=== PATIENT | female | born 1975 | race African-American/Black ===

== ENCOUNTER 2019-10-31 15:42 | Emergency (ER) | payer OTHER ==
[2019-10-31] MEDS ORDERED: IBUPROFEN 600 MG TABLET (FP) PO ONE (16:01)
--- NOTE | 2019-10-31 16:01 | PDOC ---
History of Present Illness - General Chief Complaint: Chest Pain Stated Complaint: CHEST PAIN Time Seen by Provider: 10/31/19 15:46 History Source: Patient Exam Limitations: No Limitations - History of Present Illness Initial Comments: Karen watson a 44 yo F who denies having any pmh who presents to the [facility] with 3 hours of chest discomfort which is reproducible when she pushes on the right side of her chest. She has not taken any medications for this chest pain. States the pain is sharp in nature and does not radiate. Pain is not worsened with physical activity. Denies nausea, vomiting, diaphoresis. The patient denies recent travel/surgeries/immobility, lower extremity edema, calf pain or tenderness, tobacco use, hormone use, personal or family history of thrombosis. LMP: October 01 PCP: Dr. Lion Licona PSH: 2 C-sections, benign tumor removal from right neck, tummy tuck Social Hx: Denies smoking, drinking, or other substance abuse Allergies: Seasonal Past History - Medical History Allergies/Adverse Reactions: Allergies Allergy/AdvReac Type Severity Reaction Status Date / Time No Known Allergies Allergy Unverified 10/31/19 15:44 Home Medications: Ambulatory Orders NK [No Known Home Medication] 10/31/19 COPD: No Other medical history: DENIES - Psycho-Social/Smoking History Smoking History: Never smoked Information on smoking cessation initiated: No - Substance Abuse Hx (Audit-C & DAST Scrn) How often the patient has a drink containing alcohol: Never Score: In Men: 4 or > Positive; In Women: 3 or > Positive: 0 Screen Result (Pos requires Nsg. Audit-10AR): Negative In the last yr the pt used illegal drug/Rx for NonMed reason: No Score: Yes response is considered Positive: 0 Screen Result (Positive result requires Nsg. DAST-10): Negative Review of Systems - Review of Systems Able to Perform ROS?: Yes Comments:: CONSTITUTIONAL: Absent: fever, no chills, no fatigue EYES: Absent: visual changes ENT: Absent: ear pain, no sore throat CARDIOVASCULAR: Present: Chest pain Absent: no palpitations RESPIRATORY: Absent: cough, no SOB GI: Absent: abdominal pain, no nausea, no vomiting, no constipation, no diarrhea GENITOURINARY: Absent: dysuria, no frequency, no hematuria MUSKULOSKELETAL: Absent: back pain, no arthralgia, no myalgia SKIN: Absent: rash NEURO: Absent: headache *Physical Exam - Vital Signs Last Vital Signs Temp Pulse Resp BP Pulse Ox 99.1 F 69 16 126/89 100 10/31/19 15:43 10/31/19 15:43 10/31/19 15:43 10/31/19 15:43 10/31/19 15:43 - Physical Exam GENERAL: Well-appearing, well-nourished. No apparent distress. HEENT: Normocephalic, atraumatic. PERRL, EOM intact. CARDIOVASCULAR: Normal S1, S2. Regular rate and rhythm. PULMONARY: No evidence of respiratory distress. Lungs clear to auscultation bilaterally. No wheezing, rales or rhonchi. ABDOMEN: Soft, non-distended, non-tender. EXTREMITIES: Normal ROM in all four extremities. No gross deformities. SKIN: Warm, dry. No rash NEUROLOGICAL: No focal neurological deficits. Medical Decision Making - Medical Decision Making Karen kendall 44 yo F who denies having any pmh who presents to the [facility] ER with 3 hours of chest discomfort which is reproducible when she pushes on the right side of her chest. She has not taken any medications for this chest pain. States the pain is sharp in nature and does not radiate. Pain is not worsened with physical activity. Denies nausea, vomiting, diaphoresis. The patient denies recent travel/surgeries/immobility, lower extremity edema, calf pain or tenderness, tobacco use, hormone use, personal or family history of thrombosis. Vital Signs Temp Pulse Resp BP Pulse Ox 99.1 F 69 16 126/89 100 10/31/19 15:43 10/31/19 15:43 10/31/19 15:43 10/31/19 15:43 10/31/19 15:43 DDx IBNLT: Costochondritis, arrhythmia, MSK chest pain. MDM: Patient is PERC negative enabling me to have extremely low suspicion for PE. Plan: EKG, ibuprofen, re-assess EKG: Sinus bradycardia rate of 58, pr 150, RSR' in V1 and V2, qrs 92, normal axis, no hypertrophy, no ST elevations or depressions, QTc 424 Re-assessment: Patient feeling much better in ER after taking ibuprofen and no longer endorsing chest discomfort. The patient appears clinically sober, is A&O x4, and appears to be capable and have capacity to make reasonable decisions. The patient states they are currently in the emergency department, knows who the president is, states the correct time, correct day, and correct month. The patient is ambulatory in ER and has walked around the nursing station multiple times with a straight gait, and is not ataxic. Tolerating PO well, ate a sandwich and drank juice. Denies having any SI or HI. Patient states will not be driving home. I discussed the physical exam findings, ancillary test results and final diagnoses with the patient. I answered all of the patient's questions. The patient was satisfied with the care received and felt comfortable with the discharge plan and treatment plan. The patient will call their primary care physician within 24 hours to arrange follow-up and will return to the Emergency Department with any new, persistent or worsening symptoms. Disposition: Home with PCP/Cards fu Please note, this clinical encounter is taking place during a federal and state health care emergency attributable to the novel Babcock Virus pandemic. The Nanote[employer]ologist of the Department of Health and Human Services has declared, pursuant to the Public Health Service Act 319F-3 (42 U.S.C. 247d-6d), that a covered persons activities related to medical countermeasures against COVID-19 will be immune from liability under Federal and State law. Discharge - Discharge Information Problems reviewed: Yes Clinical Impression/Diagnosis: Atypical chest pain Condition: Stable Disposition: HOME - Admission No - Follow up/Referral Referrals: Lion Licona MD, MD [Non Staff, Medical] - Parmjit Welch MD [Staff Physician] - Donald Adler MD [Staff Physician] - - Patient Discharge Instructions Patient Printed Discharge Instructions: DI for Atypical Chest Pain, DI for Costochondritis Additional Instructions: You came into the ER with atypical chest pain. Please take ibuprofin and tylenol as needed for discomfort. Please schedule a follow up appointment with your primary care doctor and a shipping agent in the next week. You must return to the Emergency Department with any new complaints, if your symptoms persist and do not improve or if you develop any other new or worsening concerns. As discussed, please call to follow up with your Primary Care physician in 1-2 days to discuss what happened to you in the emergency room, and make sure you are being looked after and taken care of. Your emergency room visit is not complete without this follow up appointment. Please read the attached handouts for further information about your ER visit and what you should do moving forward. Thank you for coming to the [facility]. We hope you feel better soon! Print Language: BERMUDIAN - Post Discharge Activity
--- NOTE | 2019-10-31 16:05 | PDOC ---
Attending Attestation - Resident Resident Name: StewartJeremy - ED Attending Attestation I have performed the following: I have examined & evaluated the patient, The case was reviewed & discussed with the resident, I agree w/resident's findings & plan, Exceptions are as noted - HPI HPI: 10/31/19 16:07 44 yo F no sig PMH p/w L sided chest pain, sharp, worse with inspiration since this morning. Non-exertional. States it occasionally radiates to the neck. Denies SOB. Denies recent heavy lifting or new exercises. Not on OCPs. No LE swelling. No cough, fevers, or recent travel. No other complaints. - Physicial Exam PE: 10/31/19 16:09 General: well appearing, NAD HEENT: NCAT Chest: CTAB, good air entry, no wheezes rales or rhonchi, +reproducible chest wall tenderness on L upper anterior chest CVS: + s1 s2, RRR Extremities: warm and well perfused, no LE edema - Medical Decision Making 10/31/19 16:10 44 yo F with atypical CP since this morning, PERC negative and low suspicion for PE, likely msk pain. Doubt ACS and pt with EKG from urgent care without ischemic changes but poor baseline so will repeat here. Plan: -EKG -motrin -if EKG without ischemic changes will d/c with return precautions, recommend NSAID at home as needed for paina nd PMD f/u This clinical encounter is taking place during a federal and state health care emergency attributable to the novel Babcock Virus pandemic. The Hoist Mechanic of the Department of Health and Human Services has declared, pursuant to the Public Health Service Act 319F-3 (42 U.S.C. 247d-6d), that a covered persons activities related to medical countermeasures against COVID-19 will be immune from liability under Federal and State law. Discharge - Discharge Information Problems reviewed: Yes Clinical Impression/Diagnosis: Atypical chest pain Condition: Stable Disposition: HOME - Follow up/Referral Referrals: Lion Licona MD, MD [Non Staff, Medical] - Parmjit Welch MD [Staff Physician] - Donald Adler MD [Staff Physician] - - Patient Discharge Instructions Patient Printed Discharge Instructions: DI for Atypical Chest Pain, DI for Costochondritis Additional Instructions: You came into the ER with atypical chest pain. Please take ibuprofin and tylenol as needed for discomfort. Please schedule a follow up appointment with your primary care doctor and a corporate counsel in the next week. You must return to the Emergency Department with any new complaints, if your symptoms persist and do not improve or if you develop any other new or worsening concerns. As discussed, please call to follow up with your Primary Care physician in 1-2 days to discuss what happened to you in the emergency room, and make sure you are being looked after and taken care of. Your emergency room visit is not complete without this follow up appointment. Please read the attached handouts for further information about your ER visit and what you should do moving forward. Thank you for coming to the [facility]. We hope you feel better soon! Print Language: VIETNAMESE - Post Discharge Activity
[2019-10-31] MEDS ORDERED: IBUPROFEN 400 MG TABLET (FP) PO ONE (16:07)
[2019-10-31 16:44] VITALS: BP 126/89; PULSE 69; TEMP 99.1; BMI 22.0
--- NOTE | 2019-11-01 11:32 | EKG ---
Test Reason : Blood Pressure : / mmHG Vent. Rate : 058 BPM Atrial Rate : 058 BPM P-R Int : 150 ms QRS Dur : 092 ms QT Int : 432 ms P-R-T Axes : -02 039 007 degrees QTc Int : 424 ms SINUS BRADYCARDIA RSR' OR QR PATTERN IN V1 SUGGESTS RIGHT VENTRICULAR CONDUCTION DELAY BORDERLINE ECG NO PREVIOUS ECGS AVAILABLE Confirmed by CORA PRESSLEY MD ([id number]) on 11/01/2019 11:31:42 AM Referred By: MD FORMAN Confirmed By:CORA PRESSLEY MD
== END 2019-10-31 16:50 | disposition home or self-care (01) ==
LOC: FER 15:42
DX: R07.89 Other chest pain (principal)
CPT/HCPCS: 93005; 99283-25

== ENCOUNTER 2023-03-24 00:55 | Observation (INO) | payer OTHER ==
[2023-03-24] MEDS ORDERED: ACETAMINOPHEN 1000 MG/100 ML BAG IVPB ONE (01:53)
[2023-03-24] MEDS ORDERED: ACETAMINOPHEN INJECTION 100 ML IVPB ONE (02:00)
[2023-03-24 02:14] LABS: BASO % 0.3 % (0-2.0); EOS % 2.2 % (0-4.5); HEMATOCRIT 34.6 % (32.4-45.2); HEMOGLOBIN 11.1 GM/dL (10.7-15.3); LYMPH % 21.5 % (8-40); MCH 26.5 pg (25.7-33.7); MEAN CELL VOLUME 82.7 fl (80-96); MEAN PLT VOLUME 8.4 fl (7.5-11.1); MONO % 7.6 % (3.8-10.2); NEUT % 68.4 % (42.8-82.8); PLATELET COUNT 262 10^3/uL (134-434); RBC 4.19 M/mm3 (3.60-5.2); RDW 14.6 % (11.6-15.6); WHITE BLOOD COUNT 9.3 K/mm3 (4.0-10.0)
[2023-03-24 02:22] LABS: INR 0.96 (0.83-1.09); PROTHROMBIN TIME (PATIENT) 11.1 SEC (9.7-13.0)
[2023-03-24 02:35] LABS: POTASSIUM 3.7 mmol/L (3.5-5.1)
[2023-03-24 02:38] LABS: CALCIUM 8.9 mg/dL (8.5-10.1)
[2023-03-24 02:39] LABS: ALBUMIN 3.5 g/dl (3.4-5.0); BLOOD UREA NITROGEN 14.4 mg/dL (7-18)
[2023-03-24 02:42] LABS: CREATININE 0.9 mg/dL (0.55-1.3)
[2023-03-24 02:43] LABS: BILIRUBIN,TOTAL 0.3 mg/dL (0.2-1)
[2023-03-24 04:09] LABS: TOT PROT 6.6 g/dl (6.4-8.2)
[2023-03-24 10:39] VITALS: BMI 23.7
[2023-03-24] MEDS: HEPARIN NA (PORCINE) 5,000 UNITS/ML 1ML VIAL SQ SCH ×2 (14:00→21:31)
[2023-03-24] MEDS: ACETAMINOPHEN 1000 MG/100 ML BAG IVPB PRN ×2 (14:04→21:30)
[2023-03-25] MEDS: HEPARIN NA (PORCINE) 5,000 UNITS/ML 1ML VIAL SQ SCH ×3 (06:02→21:59)
[2023-03-25] MEDS: ACETAMINOPHEN 1000 MG/100 ML BAG IVPB PRN (06:28)
[2023-03-25 09:29] LABS: BASO % 0.2 % (0-2.0); EOS % 0.4 % (0-4.5); HEMATOCRIT 35.4 % (32.4-45.2); HEMOGLOBIN 11.7 GM/dL (10.7-15.3); LYMPH % 16.8 % (8-40); MCH 27.3 pg (25.7-33.7); MCHC 33.2 g/dl (32.0-36.0); MEAN CELL VOLUME 82.4 fl (80-96); MEAN PLT VOLUME 8.5 fl (7.5-11.1); MONO % 14.5 % (3.8-10.2); NEUT % 68.1 % (42.8-82.8); PLATELET COUNT 264 10^3/uL (134-434); RBC 4.29 M/mm3 (3.60-5.2); RDW 14.3 % (11.6-15.6); WHITE BLOOD COUNT 7.9 K/mm3 (4.0-10.0)
[2023-03-25 11:36] LABS: POTASSIUM 3.9 mmol/L (3.5-5.1)
[2023-03-25 12:28] LABS: ALBUMIN 3.3 g/dl (3.4-5.0); BLOOD UREA NITROGEN 6.9 mg/dL (7-18); CALCIUM 9.4 mg/dL (8.5-10.1)
[2023-03-25 12:29] LABS: CREATININE 0.6 mg/dL (0.55-1.3)
[2023-03-25 12:31] LABS: PHOSPHOROUS 2.5 mg/dL (2.5-4.9)
[2023-03-25 12:33] LABS: BILIRUBIN,TOTAL 1.1 mg/dL (0.2-1); TOT PROT 6.8 g/dl (6.4-8.2)
[2023-03-26] MEDS ORDERED: KETOROLAC TROMETHAMINE 15 MG/ML VIAL IVPUSH ONE (02:30)
[2023-03-26 06:15] VITALS: RESP 18
[2023-03-26] MEDS: HEPARIN NA (PORCINE) 5,000 UNITS/ML 1ML VIAL SQ SCH (06:33)
[2023-03-26] MEDS ORDERED: IBUPROFEN 600 MG TABLET (FP) PO PRN (08:00)
[2023-03-26 09:08] LABS: BASO % 0.7 % (0-2.0); EOS % 1.2 % (0-4.5); HEMATOCRIT 34.7 % (32.4-45.2); HEMOGLOBIN 11.2 GM/dL (10.7-15.3); LYMPH % 22.7 % (8-40); MCH 26.8 pg (25.7-33.7); MCHC 32.2 g/dl (32.0-36.0); MEAN CELL VOLUME 83.1 fl (80-96); MEAN PLT VOLUME 8.5 fl (7.5-11.1); NEUT % 61.4 % (42.8-82.8); PLATELET COUNT 276 10^3/uL (134-434); RBC 4.18 M/mm3 (3.60-5.2); RDW 14.3 % (11.6-15.6); WHITE BLOOD COUNT 8.4 K/mm3 (4.0-10.0)
[2023-03-26 09:15] LABS: POTASSIUM 3.4 mmol/L (3.5-5.1)
[2023-03-26 09:20] LABS: CALCIUM 8.8 mg/dL (8.5-10.1)
[2023-03-26 09:21] LABS: BLOOD UREA NITROGEN 7.4 mg/dL (7-18)
[2023-03-26 09:23] LABS: CREATININE 0.6 mg/dL (0.55-1.3)
[2023-03-26 09:24] LABS: BILIRUBIN,TOTAL 0.8 mg/dL (0.2-1); TOT PROT 6.6 g/dl (6.4-8.2)
[2023-03-26] MEDS ORDERED: ENOXAPARIN NA (PORCINE) 40 MG/0.4 ML DISP.SYRIN SQ SCH (10:00)
[2023-03-26] MEDS ORDERED: POTASSIUM CHLORIDE ORAL LIQUID 20 MEQ/15 ML PO ONE (10:45)
[2023-03-26] MEDS ORDERED: POLYETHYLENE GLYCOL (HEALTHYLAX) 3350 17 GM PACKET PO SCH (12:00)
[2023-03-26 18:20] VITALS: BP 116/77; PULSE 83; TEMP 97.5
== END 2023-03-26 18:30 | disposition home or self-care (01) ==
LOC: JER 00:55 → UNDOADMOB 04:47 → INTOOBSV 04:47 → JERBED 04:47 → J5S 09:20
PROVIDERS: ADMIT Internal Medicine; ATTEND Internal Medicine
PROC: 3E033NZ Introduction of Analgesics, Hypnotics, Sedatives into Peripheral Vein, Percutaneous Approach (ICD-10-PCS; principal; 2023-03-24)
DX: J98.59 Other diseases of mediastinum, not elsewhere classified (principal); R01.1 Cardiac murmur, unspecified; M27.9 Disease of jaws, unspecified
CPT/HCPCS: 0241U-QW; 36415; 71045-TC-FY; 71275-TC; 74177-TC; 80053; 82105; 83519; 83615; 83735; 84100; 84484; 84702; 85025; 85610; 85730; 93005; 93010; 93306-TC; 96374; 96376; 99285-25; G0378; J1644; Q9967